=== PATIENT | female | born 1940 | race Two or more races ===

== ENCOUNTER 2016-10-15 10:32 | Emergency (ER) | payer OTHER ==
--- NOTE | 2016-10-15 10:42 | EDPHY ---
H & P Time Seen by Provider: 10/15/16 10:34 HPI/ROS: CHIEF COMPLAINT: Hypoxia HISTORY OF PRESENT ILLNESS: Patient is a 76-year-old Somali-speaking female who comes from her doctor's office. She presented there complaining of shortness of breath and a fever at home. She was seen by Dr. Orourke and noted to have hypoxia in the mid 80s on room air. She has history of polycythemia vera only. She also noted a potassium 6.2 two weeks ago. She recently started a new medication Jakafi. The patient denies chest pain or abdominal symptoms. she does have a mild cough. REVIEW OF SYSTEMS: Constitutional: denies: chills, fever, recent illness, recent injury EENTM: denies: blurred vision, double vision, nose congestion Respiratory: See HPI Cardiac: denies: chest pain, irregular heart rate, lightheadedness, palpitations Gastrointestinal/Abdominal: denies: abdominal pain, diarrhea, nausea, vomiting, blood streaked stools Genitourinary: denies: dysuria, frequency, hematuria, pain Musculoskeletal: denies: joint pain, muscle pain Skin: denies: lesions, rash, jaundice, bruising Neurological: denies: headache, numbness, paresthesia, tingling, dizziness, weakness Hematologic/Lymphatic: denies: blood clots, easy bleeding, easy bruising Immunologic/allergic: denies: HIV/AIDS, transplant EXAM: GENERAL: Well-appearing, well-nourished and in no acute distress. HEAD: Atraumatic, normocephalic. EYES: Pupils equal round and reactive to light, extraocular movements intact, sclera anicteric, conjunctiva are normal. ENT: TMs normal, nares patent, oropharynx clear without exudates. Moist mucous membranes. NECK: Normal range of motion, supple without lymphadenopathy or JVD. LUNGS: Rhonchi right lower lobe, no wheezing HEART: Regular rate and rhythm without murmurs, rubs or gallops. ABDOMEN: Soft, nontender, normoactive bowel sounds. No guarding, no rebound. No masses appreciated. BACK: No CVA tenderness, no spinal tenderness, step-offs or deformities EXTREMITIES: Normal range of motion, no pitting or edema. No clubbing or cyanosis. NEUROLOGICAL: Cranial nerves II through XII grossly intact. Normal speech, normal gait. 5/5 strength, normal movement in all extremities, normal sensation PSYCH: Normal mood, normal affect. SKIN: Warm, dry, normal turgor, no visible rashes or lesions. Source: Patient Exam Limitations: No limitations - Personal History Tetanus Vaccine Date: unknown - Medical/Surgical History Hx Asthma: No Hx Chronic Respiratory Disease: No Hx Diabetes: No Hx Cardiac Disease: No Hx Renal Disease: No Hx Cirrhosis: No Hx Alcoholism: No Other PMH: polycythemia, TIA, DVT, - Family History Significant Family History: Hypertension - Social History Smoking Status: Never smoked Alcohol Use: Sober Drug Use: None Constitutional: Initial Vital Signs Temperature (C) 36.7 C 10/15/16 10:35 Heart Rate 84 10/15/16 10:35 Respiratory Rate 18 10/15/16 10:35 Blood Pressure 109/64 10/15/16 10:35 O2 Sat (%) 90 L 10/15/16 10:35 O2 Delivery Mode Room Air O2 (L/minute) 2 Allergies/Adverse Reactions: No Known Allergies Allergy (Verified 10/15/16 10:43) Home Medications: Medication Instructions Recorded AZITHROMYCIN [Z-PACK] 250 mg PO DAILY #4 tab 10/15/16 Pill For "Too Much Iron In Blood" 10/15/16 Medical Decision Making - Diagnostics EKG Interpretation: An EKG obtained and was read and documented in trace view. Please see trace view for full reading and report. Sinus rhythm, unchanged from previous Imaging: X-ray: [chest x-ray ] was obtained. I viewed the images myself on the PACS system. My interpretation of the images is: Bilateral scarring, bronchitis changes. The radiologist interpretation is bilateral scarring similar to previous , no infiltrates. ED Course/Re-evaluation: The patient is doing well. She is saturating 97% on 2 L. Her son is here interpreting. I will start her on azithromycin and will see if she desaturates off of oxygen. 1:00 p.m. the patient is motivated to go home. She looks comfortable. Her son is here. She does desaturate to 87% occasionally but then spontaneously increases to 93%. She denies discomfort or shortness of breath. I offered admission but she and her son decline. I will start her on antibiotics and have her follow up within 24 hours. Son states that he lives right next to her and can' t check on her frequently. They will return here for symptoms worsen. 1:10 p.m. while I was walking past the patient's oxygen saturation dropped down to 83% with a good waveform. It immediately brought back up to 89%. I recommended admission. Patient continues to decline admission. Her son suggest that we observe her for another hour or two and decided then. 2:30 p.m. the patient is saturating 92-95% on room air. She and her son are eager to go. They declined further workup or testing. Differential Diagnosis: Partial list of the Differential diagnosis considered include but were not limited to; bronchitis, pneumonia and although unlikely based on the history and physical exam, I also considered COPD, asthma, CHF, acute coronary disease. I discussed these differential diagnoses and the plan with the patient as well as the usual and expected course. The patient understands that the diagnosis is provisional and that in medicine we are not always correct and that further workup is often warranted. Usual and customary warnings were given. All of the patient's questions were answered. The patient was instructed to return to the emergency department should the symptoms at all worsen or return, otherwise to followup with the physician as we discussed. - Data Points Laboratory Results: Laboratory Results 10/15/16 10:35 10/15/16 10:35 10/15/16 10/15/16 10/15/16 12:45 11:00 10:52 WBC RBC Hgb Hct MCV MCH MCHC RDW Plt Count MPV Neut % (Auto) Lymph % (Auto) Maury % (Auto) Eos % (Auto) Baso % (Auto) Nucleat RBC Rel Count Absolute Neuts (auto) Absolute Lymphs (auto) Absolute Monos (auto) Absolute Eos (auto) Absolute Basos (auto) Absolute Nucleated RBC Immature Gran % Immature Gran # Platelet Estimate Large Platelets Giant Platelets Hypochromasia Microcytic Cells Tear Drop Cells Oval Macrocytes Elliptocytes Acanthocytes (Spur) Schistocytes Smear Review By PT INR APTT VBG Lactic Acid 1.3 mmol/L mmol/L (0.7-2.1) Sodium Potassium Chloride Carbon Dioxide Anion Gap BUN Creatinine Estimated GFR Glucose Calcium Total Bilirubin Urine Color YELLOW Urine Appearance HAZY Urine pH 5.0 (5.0-7.5) Ur Specific [place] 1.015 (1.002-1.030) Urine Protein 2+ H (NEGATIVE) Urine Ketones NEGATIVE (NEGATIVE) Urine Blood 1+ H (NEGATIVE) Urine Nitrate NEGATIVE (NEGATIVE) Urine Bilirubin NEGATIVE (NEGATIVE) Urine Urobilinogen NEGATIVE EU EU (0.2-1.0) Ur Leukocyte Esterase NEGATIVE (NEGATIVE) Urine RBC 3-5 /hpf H /hpf (0-3) Urine WBC 1-3 /hpf /hpf (0-3) Ur Epithelial Cells TRACE /lpf /lpf (NONE-1+) Urine Bacteria TRACE /hpf H /hpf (NONE SEEN) Granular Casts 5-15 /lpf /lpf (0-1) Urine Mucus TRACE /lpf /lpf (NONE-1+) Urine Glucose NEGATIVE (NEGATIVE) Influenza Typ A,B (DFA) NEGATIVE FOR FLU (NEGATIVE) 10/15/16 10/15/16 10/15/16 10:35 10:35 10:35 WBC 7.10 10^3/uL 10^3/uL (3.80-9.50) RBC 3.27 10^6/uL L 10^6/uL (4.18-5.33) Hgb 10.0 g/dL L g/dL (12.6-16.3) Hct 31.4 % L % (38.0-47.0) MCV 96.0 fL fL (81.5-99.8) MCH 30.6 pg pg (27.9-34.1) MCHC 31.8 g/dL L g/dL (32.4-36.7) RDW 25.3 % H % (11.5-15.2) Plt Count 798 10^3/uL H 10^3/uL (150-400) MPV 12.6 fL H fL (8.7-11.7) Neut % (Auto) 84.4 % H % (39.3-74.2) Lymph % (Auto) 8.6 % L % (15.0-45.0) Maury % (Auto) 4.4 % L % (4.5-13.0) Eos % (Auto) 0.3 % L % (0.6-7.6) Baso % (Auto) 0.3 % % (0.3-1.7) Nucleat RBC Rel Count 0.6 % H % (0.0-0.2) Absolute Neuts (auto) 6.00 10^3/uL 10^3/uL (1.70-6.50) Absolute Lymphs (auto) 0.61 10^3/uL L 10^3/uL (1.00-3.00) Absolute Monos (auto) 0.31 10^3/uL 10^3/uL (0.30-0.80) Absolute Eos (auto) 0.02 10^3/uL L 10^3/uL (0.03-0.40) Absolute Basos (auto) 0.02 10^3/uL 10^3/uL (0.02-0.10) Absolute Nucleated RBC 0.04 10^3/uL H 10^3/uL (0-0.01) Immature Gran % 2.0 % H % (0.0-1.1) Immature Gran # 0.14 10^3/uL H 10^3/uL (0.00-0.10) Platelet Estimate INCREASED H (ADEQ) Large Platelets PRESENT H Giant Platelets PRESENT H Hypochromasia 1+ H Microcytic Cells 3+ H Tear Drop Cells 2+ H Oval Macrocytes 3+ H Elliptocytes 2+ H Acanthocytes (Spur) 1+ H Schistocytes 3+ H Smear Review By Pending PT 15.4 SEC H SEC (12.0-15.0) INR 1.22 H (0.83-1.16) APTT 46.2 SEC H SEC (23.0-38.0) VBG Lactic Acid Sodium 132 mEq/L L mEq/L (134-144) Potassium 4.3 mEq/L mEq/L (3.5-5.2) Chloride 96 mEq/L L mEq/L (97-110) Carbon Dioxide 27 mEq/l mEq/l (22-31) Anion Gap 9 mEq/L mEq/L (8-16) BUN 13 mg/dL mg/dL (7-23) Creatinine 0.7 mg/dL mg/dL (0.6-1.0) Estimated GFR > 60 Glucose 119 mg/dL H mg/dL (70-100) Calcium 8.5 mg/dL mg/dL (8.5-10.4) Total Bilirubin 1.2 mg/dL mg/dL (0.1-1.4) Urine Color Urine Appearance Urine pH Ur Specific [place] Urine Protein Urine Ketones Urine Blood Urine Nitrate Urine Bilirubin Urine Urobilinogen Ur Leukocyte Esterase Urine RBC Urine WBC Ur Epithelial Cells Urine Bacteria Granular Casts Urine Mucus Urine Glucose Influenza Typ A,B (DFA) Medications Given: Discontinued Medications Albuterol Sulfate (Proventil Inh Prepack) 1 mdi TAKEHOME EDNOW ONE Stop: 10/15/16 13:05 Last Admin: 10/15/16 13:40 Dose: 1 mdi Albuterol/Ipratropium (Duoneb) 3 ml IH EDNOW ONE Stop: 10/15/16 12:11 Last Admin: 10/15/16 12:15 Dose: 3 ml Azithromycin (Zithromax) 500 mg PO EDNOW ONE PRN Reason: Protocol Stop: 10/15/16 12:06 Last Admin: 10/15/16 12:10 Dose: 500 mg Departure - Departure Disposition: Home, Routine, Self-Care Clinical Impression: Acute bronchitis Qualifiers: Bronchitis organism: unspecified organism Qualified Code(s): J20.9 - Acute bronchitis, unspecified Condition: Fair Instructions: Acute Bronchitis (ED) Additional Instructions: Use inhaler as instructed: 1-2 puffs every 4 hours as needed for shortness of breath or cough Referrals: Jeannie Orourke MD [Primary Care Provider] - 1 day without fail Prescriptions: AZITHROMYCIN [Z-PACK] 250 mg PO DAILY #4 tab Print Language: Somali
[2016-10-15 10:49] VITALS: RESP 18; TEMP 98.1
[2016-10-15 10:49] LABS: ABSOLUTE IMMATURE GRANULOCYTES 0.14 10^3/uL (0.00-0.10); ABSOLUTE NRBC COUNT 0.04 10^3/uL (0-0.01); ADD DIFF? NO; ADD MORPH? YES; ADD SCAN? NO; ATYPICAL LYMPHOCYTE FLAG 0 (0-99); FRAGMENT RBC FLAG 90 (0-99); HEMATOCRIT 31.4 % (38.0-47.0); LEFT SHIFT FLG 10 (0-99); LIPEMIA HEMOLYSIS FLAG 80 (0-99); MEAN CELL HEMOGLOBIN 30.6 pg (27.9-34.1); MEAN CELL HEMOGLOBIN CONCENTR. 31.8 g/dL (32.4-36.7); MEAN PLATELET VOLUME 12.6 fL (8.7-11.7); NRBC-AUTO% 0.6 % (0.0-0.2); PLATELET CLUMPS FLAG 0 (0-99); RED BLOOD CELL COUNT 3.27 10^6/uL (4.18-5.33)
[2016-10-15 10:51] LABS: PLATELET COUNT 798 10^3/uL (150-400); RED CELL DISTRIBUTION WIDTH 25.3 % (11.5-15.2)
[2016-10-15 10:53] LABS: INR 1.22 (0.83-1.16); PROTIME(PATIENT) 15.4 SEC (12.0-15.0)
[2016-10-15 10:54] LABS: APTT 46.2 SEC (23.0-38.0)
--- NOTE | 2016-10-15 11:00 | CPEKG ---
Heart Rate: 80 RR Interval: 750 P-R Interval: 144 QRSD Interval: 88 QT Interval: 376 QTC Interval: 434 P Wayne: -1 QRS Wayne: 40 T Wave Wayne: 15 EKG Severity - NORMAL ECG - EKG Impression: SINUS RHYTHM EKG Impression: unchanged from previous Electronically Signed By: Gibran Wells 15-Oct-2016 11:14:18
[2016-10-15 11:10] LABS: ANION GAP 9 mEq/L (8-16); BILIRUBIN,TOTAL 1.2 mg/dL (0.1-1.4); CALCIUM 8.5 mg/dL (8.5-10.4); CARBON DIOXIDE 27 mEq/l (22-31); CHLORIDE 96 mEq/L (97-110); CREATININE 0.7 mg/dL (0.6-1.0); GLOMERULAR FILTRATION RATE > 60; GLUCOSE 119 mg/dL (70-100); POTASSIUM 4.3 mEq/L (3.5-5.2); SODIUM 132 mEq/L (134-144)
[2016-10-15 11:28] LABS: HYPOCHROMIA 1+; MACROCYTES 3+; MICROCYTES 3+; PLATELET ESTIMATE INCREASED (ADEQ)
[2016-10-15 11:29] LABS: ACANTHOCYTES 1+; ELLIPTOCYTES 2+; GIANT PLATELETS PRESENT; LARGE PLATELETS PRESENT; SCHISTOCYTES 3+
[2016-10-15] MEDS ORDERED: AZITHROMYCIN 250 MG TAB PO ONE (12:05)
[2016-10-15] MEDS ORDERED: IPRATROPIUM/ALBUTEROL 3 ML DEYVIAL IH ONE (12:10)
[2016-10-15 13:02] LABS: COLOR YELLOW; LEUKOCYTE ESTERASE,URINE NEGATIVE (NEGATIVE); NITRITE,URINE NEGATIVE (NEGATIVE)
[2016-10-15] MEDS ORDERED: ALBUTEROL INH PREPACK MDI TAKEHOME ONE (13:04)
[2016-10-15 13:42] LABS: BACTERIA TRACE /hpf (NONE SEEN); MUCUS TRACE /lpf (NONE-1+)
[2016-10-15 14:30] VITALS: BP 109/56; PULSE 81; O2SAT 93
== END 2016-10-15 14:49 | disposition home or self-care (01) ==
LOC: EDBD → EDUNIT#
DX: J20.9 Acute bronchitis, unspecified (principal); Z86.73 Personal history of transient ischemic attack (TIA), and cerebral infarction without residual deficits

== ENCOUNTER 2016-10-15 18:45 | Inpatient (IN) | payer OTHER ==
[2016-10-15] MEDS ORDERED: NS 250 ML IV ONE (19:34)
--- NOTE | 2016-10-15 19:45 | EDPHY ---
H & P Time Seen by Provider: 10/15/16 19:14 HPI/ROS: HPI Low oxygen levels, lower abdominal pain, diarrhea. 76-year-old female by private vehicle with her daughter. The patient was seen in the Emergency Department earlier this morning having being sent here by her primary care physician Dr. Orourke. She saw her primary care physician Dr. Orourke initially this morning with complaint of fatigue, low oxygen levels, low- grade fever at home and lower abdominal pain. Her daughter also tells me that she was recently put on a new medication called Jakafchristine by her benzol operator Dr. Anderson. Her chest x-ray did not show anything acute. Her pulse oximetries were mostly in the mid low 90s on room air in the emergency department. She occasionally would drop down to 87%. However, there was no further indication to admit her to the hospital at that time and she was motivated to go home. She returns to the emergency department now complaining of worsening left lower quadrant abdominal pain, diarrheal stools which she states is mucousy in nature and low oxygen levels at home. Apparently her 2nd daughter is a chief nursing officer and has a pulse oximetry machine and she was 83% at home. She denies any bloody or melenic stool. She has not had any vomiting. She denies any cough. Daughter reports that she has felt warm at home. ROS: Constitutional: As above, no chills. No weakness. Eyes: No discharge. No changes in vision. ENT: No sore throat. No nasal congestion or rhinorrhea. Respiratory: As above. Cardiac: No chest pain, no palpitations. Gastrointestinal: As above. No vomiting. Genitourinary: No hematuria. No dysuria or increased frequency with urination. Musculoskeletal: No back pain. No neck pain. No myalgias or arthralgias. Skin: No rashes. Neurological: No headache. No focal weakness or altered sensation. Past medical history: Polycythemia, TIA, DVT. She is not on anticoagulation. Primary care physician is Dr. Orourke. Gold Assayer is Dr. Anderson. Social history: Lives with her . She ambulates without a cane or walker. Nonsmoker. No alcohol. Here with her daughter. Physical Exam: General Appearance: Alert, no distress. This patient is responding to questions appropriately and in full sentences. This patient appears well- hydrated and well-nourished. Eyes: Pupils equal and round no pallor or injection. No lid edema, erythema or injection. Respiratory: There are no retractions, lungs are clear to auscultation anteriorly with good air movement bilaterally. No tachypnea Cardiovascular: Regular rate and rhythm. No murmur. Gastrointestinal: Abdomen is soft left lower quadrant tenderness on palpation, no masses, bowel sounds normal. No focal tenderness at McBurney's point. No Goins sign. Neurological: Motor sensory function is grossly intact. Cranial nerves are normal. Gait is normal. Skin: Warm and dry, no rashes. Musculoskeletal: Neck is supple and nontender. Extremities are symmetrical. All joints range without pain or impingement. Psychiatric: No agitation. No depression. Database: EKG: Imaging: CT scan of abdomen and pelvis with IV contrast: Significant for a sigmoid diverticulitis. Significant inflammation but no abscess. No free air. Results were discussed with staff radiologist Dr. Khang Marie. Procedures: Emergency department course: EKG, blood work, urinalysis and chest x-ray reviewed from her visit earlier this morning. Vital signs reviewed. Afebrile. No tachycardia. No tachypnea. IV was placed. Pulse oximetry on 2 L by nasal cannula ranges from 89% to 94% . She will be given 250 cc of IV normal saline per hour for the next 2 hours. She will be sent for a contrast enhanced CT scan of the abdomen and pelvis to evaluate for probable diverticulitis. 9:55 p.m., patient re-evaluated. Comfortable at this time. Pain is well controlled. Results of CT scan and diagnosis discussed with patient and her daughter. Plan for admission and IV antibiotics discussed. I also discussed my concern about her worsening anemia. H&H is 8.2 and 25.6, from 10 and 31.4 respectively earlier today. Possible source is rectal bleeding from diverticulitis. Patient started on IV ciprofloxacin and Flagyl in the emergency department. Type and screen sent. 10:00 p.m., spoke with on-call hospitalist Dr. Tarsha Encarnacion. Case discussed in detail with her. She accepts the patient for admission. She will see the patient in the emergency department. Her remaining emergency department course under my care has been uneventful. She was admitted in stable condition. Differential Diagnosis: The differential diagnosis on this patient includes but is not limited to diverticulitis, colitis, bronchitis, reactive airway disease. Urinary tract infection, volvulus, bowel obstruction, gastrointestinal hemorrhage unlikely. This represents a partial list of diagnoses considered. These considerations are based on history, physical exam, past history, reassessment and diagnostic testing. Smoking Status: Never smoked Constitutional: Initial Vital Signs Temperature (C) 37.2 C 10/15/16 18:58 Heart Rate 82 10/15/16 18:58 Respiratory Rate 20 10/15/16 18:58 Blood Pressure 116/53 L 10/15/16 18:58 O2 Sat (%) 89 L 10/15/16 18:58 O2 Delivery Mode Nasal Cannula O2 (L/minute) 2 Allergies/Adverse Reactions: No Known Allergies Allergy (Verified 10/15/16 18:56) Home Medications: Medication Instructions Recorded AZITHROMYCIN [Z-PACK] 250 mg PO DAILY #4 tab 10/15/16 Aspirin [Aspirin 81mg (*)] 81 mg PO DAILY 10/15/16 Hydroxyurea [Hydrea 500 mg (*)] 500 mg PO BID 10/15/16 Jakafi 10/15/16 Medical Decision Making - Data Points Laboratory Results: Laboratory Results 10/15/16 19:50 10/15/16 19:50 10/15/16 19:50 Smear Review By Gianfranco GARDNER MD Medications Given: Discontinued Medications Sodium Chloride (Ns) 250 mls @ 0 mls/hr IV ONCE ONE PRN Reason: Wide Open Stop: 10/15/16 19:35 Last Admin: 10/15/16 19:51 Dose: 250 mls Ciprofloxacin/Dextrose (Cipro 400 Mg (Premix)) 200 mls @ 200 mls/hr IV EDNOW ONE PRN Reason: Protocol Stop: 10/15/16 22:52 Last Admin: 10/15/16 22:25 Dose: 200 mls Metronidazole/Sodium Chloride (Flagyl 500 Mg (Premix)) 100 mls @ 100 mls/hr IV EDNOW ONE PRN Reason: Protocol Stop: 10/15/16 22:53 Last Admin: 10/15/16 23:50 Dose: 100 mls Metronidazole/Sodium Chloride (Flagyl 500 Mg (Premix)) 100 mls @ 100 mls/hr IV Q8HRS DARON PRN Reason: Protocol Stop: 11/15/16 05:59 Last Admin: 10/16/16 05:26 Dose: 100 mls Potassium Chloride/Sodium Chloride (Ns W/ 20 Kcl/L) 1,000 mls @ 100 mls/hr IV CONT DARON Stop: 04/13/17 23:29 Last Admin: 10/15/16 23:51 Dose: 1,000 mls Vancomycin/Sodium Chloride (Vancomycin 1 Gm (Premix)) 250 mls @ 250 mls/hr IV ONCE ONE PRN Reason: Protocol Stop: 10/16/16 06:50 Last Admin: 10/16/16 06:17 Dose: Not Given Departure - Departure Disposition: [facility] Acute Clinical Impression: Hypoxia, Lower abdominal pain, Diverticulitis, Anemia
[2016-10-15 20:00] LABS: % IMMATURE GRANULYOCYTES 1.8 % (0.0-1.1); ABSOLUTE IMMATURE GRANULOCYTES 0.13 10^3/uL (0.00-0.10); ABSOLUTE NRBC COUNT 0.03 10^3/uL (0-0.01); ADD DIFF? NO; ADD MORPH? YES; ADD SCAN? NO; ATYPICAL LYMPHOCYTE FLAG 0 (0-99); FRAGMENT RBC FLAG 90 (0-99); HEMATOCRIT 25.6 % (38.0-47.0); HEMOGLOBIN 8.2 g/dL (12.6-16.3); LEFT SHIFT FLG 10 (0-99); LIPEMIA HEMOLYSIS FLAG 80 (0-99); MEAN CELL HEMOGLOBIN 29.8 pg (27.9-34.1); MEAN CELL VOLUME 93.1 fL (81.5-99.8); MEAN PLATELET VOLUME 12.6 fL (8.7-11.7); NRBC-AUTO% 0.4 % (0.0-0.2); PLATELET CLUMPS FLAG 0 (0-99); PLATELET COUNT 738 10^3/uL (150-400); RED BLOOD CELL COUNT 2.75 10^6/uL (4.18-5.33)
[2016-10-15 20:01] LABS: RED CELL DISTRIBUTION WIDTH 26.4 % (11.5-15.2)
[2016-10-15 20:25] LABS: LARGE PLATELETS PRESENT
[2016-10-15 20:27] LABS: GIANT PLATELETS PRESENT; PLATELET ESTIMATE INCREASED (ADEQ); POLYCHROMASIA 2+
[2016-10-15 20:28] LABS: HYPOCHROMIA 1+; STOMATOCYTES 1+
[2016-10-15 20:29] LABS: ELLIPTOCYTES 1+
[2016-10-15 20:30] LABS: SCHISTOCYTES 1+
[2016-10-15 20:31] LABS: MICROCYTES 1+
[2016-10-15 20:40] LABS: ANION GAP 6 mEq/L (8-16); CALCIUM 7.8 mg/dL (8.5-10.4); CARBON DIOXIDE 25 mEq/l (22-31); CHLORIDE 95 mEq/L (97-110); CREATININE 0.6 mg/dL (0.6-1.0); GLOMERULAR FILTRATION RATE > 60; GLUCOSE 109 mg/dL (70-100); POTASSIUM 3.8 mEq/L (3.5-5.2); SODIUM 126 mEq/L (134-144)
[2016-10-15] MEDS ORDERED: IOPAMIDOL (ISOVUE-300) 100 ML BTL IV ONE (20:51)
[2016-10-15] MEDS ORDERED: CIPROFLOXACIN 400 MG/DEXTROSE 200 ML IV ONE (21:53)
[2016-10-15] MEDS ORDERED: ONDANSETRON DISINTEGRATING 4 MG TAB PO PRN (23:21)
[2016-10-15] MEDS ORDERED: oxyCODONE IR 5 MG TAB PO PRN (23:21)
[2016-10-15] MEDS ORDERED: BENZONATATE 100 MG CAP PO PRN (23:21)
[2016-10-15] MEDS ORDERED: ACETAMINOPHEN 325 MG TAB PO PRN (23:21)
[2016-10-15] MEDS ORDERED: ONDANSETRON 4 MG/2 ML VIAL IVP PRN (23:21)
[2016-10-15] MEDS ORDERED: ALBUTEROL 3 ML DEYVIAL IH PRN (23:21)
[2016-10-15] MEDS ORDERED: NS W/ 20 KCl/L 1,000 ML IV SCH (23:30)
--- NOTE | 2016-10-15 23:30 | PDGENHP ---
History and Physical - Chief Complaint abdominal pain - History of Present Illness 76 yo female with h/o polycythemia vera and thrombocytosis presented to ED with abdominal pain and hypoxemia earlier today. She was ultimately discharged home , but returned this evening with worsening symptoms. She reports upper respiratory symptoms including cough and sore throat x1 week. She denies chest pain or SOB. Denies pleuritic symptoms. Low grade fevers are reported. She was worked up for hypoxemia in the ED earlier today due to her O2 sats at home being in the mid-80's. CXR revealed peribronchial thickening and she was diagnosed with bronchitis and discharged home. She returned this evening reporting LLQ abdominal pain. She has a h/o diverticulitis 5 years ago. She reports mucus stools today, but denies hematochezia or melanotic stools. No N/V. CT scan revealed sigmoid diverticulitis. She is admitted to the hospital for further management. History Information - Allergies/Home Medication List Allergies/Adverse Reactions: No Known Allergies Allergy (Verified 10/15/16 18:56) Home Medications: Hydroxyurea 10/15/16 [Last Taken Unknown] Jakafi 10/15/16 [Last Taken Unknown] Pill For "Too Much Iron In Blood" 10/15/16 [Last Taken Unknown] I have personally reviewed and updated: family history, medical history, social history, surgical history - Past Medical History Additional medical history: Polycythemia Vera with thrombocytosis. Followed by Dr. Anderson. She was recently started on Jakafi and was to reduce her dose, but is awaiting the lower dose via mail. She also takes Hydroxyurea. - Surgical History Reports: cholecystectomy - Family History Positive for: cancer Additional family history: unknown cancer in mom and sisters - Social History Smoking Status: Never smoked Alcohol Use: None Drug Use: None (Lives with her in [place]. Originally from [place], fris[place] speaking[place] Review of Systems ROS: 10pt was reviewed & negative except for what was stated in HPI & below Physical Exam Temp Pulse Resp BP Pulse Ox 37.2 C 70 18 143/79 H 94 10/15/16 22:30 10/15/16 22:30 10/15/16 22:30 10/15/16 22:30 10/15/16 22:30 Constitutional: no apparent distress Eyes: PERRL Ears, Nose, Mouth, Throat: moist mucous membranes Cardiovascular: regular rate and rhythym, no murmur, rub, or gallop Respiratory: no respiratory distress, clear to auscultation Gastrointestinal: normoactive bowel sounds, other (nondistended, +LLQ tenderness with voluntary guarding, no rigidity or peritoneal signs) Skin: warm Musculoskeletal: full muscle strength Neurologic: AAOx3 Psychiatric: interacting appropriately Lab Data & Imaging Review 10/15/16 19:50 10/15/16 19:50 WBC 7.30 10^3/uL (3.80-9.50) 10/15/16 19:50 RBC 2.75 10^6/uL (4.18-5.33) L 10/15/16 19:50 Hgb 8.2 g/dL (12.6-16.3) L 10/15/16 19:50 Hct 25.6 % (38.0-47.0) L 10/15/16 19:50 MCV 93.1 fL (81.5-99.8) 10/15/16 19:50 MCH 29.8 pg (27.9-34.1) 10/15/16 19:50 MCHC 32.0 g/dL (32.4-36.7) L 10/15/16 19:50 RDW 26.4 % (11.5-15.2) H 10/15/16 19:50 Plt Count 738 10^3/uL (150-400) H D 10/15/16 19:50 MPV 12.6 fL (8.7-11.7) H 10/15/16 19:50 Neut % (Auto) 72.6 % (39.3-74.2) 10/15/16 19:50 Lymph % (Auto) 19.0 % (15.0-45.0) 10/15/16 19:50 [place] % (Auto) 6.2 % (4.5-13.0) 10/15/16 19:50 Eos % (Auto) 0.1 % (0.6-7.6) L 10/15/16 19:50 Baso % (Auto) 0.3 % (0.3-1.7) 10/15/16 19:50 Nucleat RBC Rel Count 0.4 % (0.0-0.2) H 10/15/16 19:50 Absolute Neuts (auto) 5.30 10^3/uL (1.70-6.50) 10/15/16 19:50 Absolute Lymphs (auto) 1.39 10^3/uL (1.00-3.00) 10/15/16 19:50 Absolute Monos (auto) 0.45 10^3/uL (0.30-0.80) 10/15/16 19:50 Absolute Eos (auto) 0.01 10^3/uL (0.03-0.40) L 10/15/16 19:50 Absolute Basos (auto) 0.02 10^3/uL (0.02-0.10) 10/15/16 19:50 Absolute Nucleated RBC 0.03 10^3/uL (0-0.01) H 10/15/16 19:50 Immature Gran % 1.8 % (0.0-1.1) H 10/15/16 19:50 Immature Gran # 0.13 10^3/uL (0.00-0.10) H 10/15/16 19:50 Platelet Estimate INCREASED (ADEQ) H 10/15/16 19:50 Large Platelets PRESENT H 10/15/16 19:50 Giant Platelets PRESENT H 10/15/16 19:50 Polychromasia 2+ H 10/15/16 19:50 Hypochromasia 1+ H 10/15/16 19:50 Microcytic Cells 1+ H 10/15/16 19:50 Stomatocytes 1+ H 10/15/16 19:50 Elliptocytes 1+ H 10/15/16 19:50 Schistocytes 1+ H 10/15/16 19:50 Sodium 126 mEq/L (134-144) L 10/15/16 19:50 Potassium 3.8 mEq/L (3.5-5.2) 10/15/16 19:50 Chloride 95 mEq/L (97-110) L 10/15/16 19:50 Carbon Dioxide 25 mEq/l (22-31) 10/15/16 19:50 Anion Gap 6 mEq/L (8-16) L 10/15/16 19:50 BUN 13 mg/dL (7-23) 10/15/16 19:50 Creatinine 0.6 mg/dL (0.6-1.0) 10/15/16 19:50 Estimated GFR > 60 10/15/16 19:50 Glucose 109 mg/dL (70-100) H 10/15/16 19:50 Calcium 7.8 mg/dL (8.5-10.4) L 10/15/16 19:50 Assessment & Plan Assessment: Sigmoid diverticulitis - Last episode [address], no abscess on CT , but extensive mesenteric fat inflammation. Will treat with IV Cipro, Flagyl. Clear liquids for now. Consider surgical consultation if not improving. Acute hypoxemic respiratory failure in setting of URI symptoms. CXR reviewed, no PNA. Pt has cough c/w viral URI. Flu negative. Considered PE in setting of thrombocytosis / PV. Wells criteria is 2.5 based on malignancy (PV) and decreased mobility with recent illness, overall low probability. Will check a d dimer and if positive, pursue imaging. Otherwise, will give nebs, O2, tessalon, supportive care. Update: pt's family declined d dimer tonight as pt finally getting some rest, will obtain in am. Polycythemia Vera with thrombocytosis - plts down to 700K from >1 million 2 weeks ago. Continue Hydroxyurea and Jakafi tomorrow when med rec completed. Anemia - chronic, baseline hgb around 10, dropped to 8 today. No obvious GI bleeding. Will hemoccult stool, follow h&h. Hyponatremia - acute. Suspect volume depletion as pt reports poor oral intake. Will give NS hydration overnight, check urine studies, follow. DVT PPLX - Lovenox Code status - DNR Dispo - Inpt status, will likely require >48 hrs hospitalization for management of diverticulitis and acute hypoxemic respiratory failure.
[2016-10-16] MEDS: IPRATROPIUM/ALBUTEROL 3 ML DEYVIAL IH SCH ×4 (05:05→21:30)
[2016-10-16 05:47] LABS: % IMMATURE GRANULYOCYTES 0.9 % (0.0-1.1); ABSOLUTE IMMATURE GRANULOCYTES 0.05 10^3/uL (0.00-0.10); ABSOLUTE NRBC COUNT 0.03 10^3/uL (0-0.01); ADD DIFF? NO; ADD MORPH? YES; ADD SCAN? NO; ATYPICAL LYMPHOCYTE FLAG 0 (0-99); FRAGMENT RBC FLAG 90 (0-99); HEMATOCRIT 25.7 % (38.0-47.0); HEMOGLOBIN 8.2 g/dL (12.6-16.3); LEFT SHIFT FLG 10 (0-99); LIPEMIA HEMOLYSIS FLAG 80 (0-99); MEAN CELL HEMOGLOBIN 30.8 pg (27.9-34.1); MEAN CELL HEMOGLOBIN CONCENTR. 31.9 g/dL (32.4-36.7); MEAN CELL VOLUME 96.6 fL (81.5-99.8); MEAN PLATELET VOLUME 12.6 fL (8.7-11.7); NRBC-AUTO% 0.5 % (0.0-0.2); PLATELET CLUMPS FLAG 10 (0-99); PLATELET COUNT 681 10^3/uL (150-400); RED BLOOD CELL COUNT 2.66 10^6/uL (4.18-5.33)
[2016-10-16] MEDS ORDERED: VANCOMYCIN HCL/NORMAL SALINE 250 ML IV ONE (05:51)
[2016-10-16 05:55] LABS: RED CELL DISTRIBUTION WIDTH 25.9 % (11.5-15.2)
[2016-10-16 06:10] LABS: ALANINE AMINOTRANSFERASE 27 IU/L (9-52); ALKALINE PHOSPHATASE 71 IU/L (38-126); ANION GAP 8 mEq/L (8-16); ASPARTATE AMINOTRANSFERASE 18 IU/L (14-46); BILIRUBIN,TOTAL 0.7 mg/dL (0.1-1.4); CARBON DIOXIDE 26 mEq/l (22-31); CHLORIDE 103 mEq/L (97-110); CREATININE 0.6 mg/dL (0.6-1.0); GLOMERULAR FILTRATION RATE > 60; GLUCOSE 97 mg/dL (70-100); MAGNESIUM 2.1 mg/dL (1.6-2.3); POTASSIUM 4.4 mEq/L (3.5-5.2); SODIUM 137 mEq/L (134-144); TOTAL PROTEIN 5.8 g/dL (6.3-8.2)
[2016-10-16] MEDS: ERTAPENEM 1 GM in NS 100 ML IV SCH (06:35)
[2016-10-16] MEDS ORDERED: D5W 1,000 ML IV SCH (07:00)
[2016-10-16 07:18] LABS: MACROCYTES 2+; MICROCYTES 1+
[2016-10-16 07:19] LABS: ELLIPTOCYTES 1+; HYPOCHROMIA 2+; POLYCHROMASIA 1+; SCHISTOCYTES 2+
[2016-10-16 07:20] LABS: PLATELET ESTIMATE INCREASED (ADEQ)
[2016-10-16] MEDS ORDERED: IOPAMIDOL (ISOVUE 370) 100 ML BTL IV ONE (07:27)
[2016-10-16] MEDS: ENOXAPARIN 40 MG/0.4 ML SYR SC SCH (08:42)
[2016-10-16] MEDS ORDERED: CIPROFLOXACIN 400 MG/DEXTROSE 200 ML IV SCH (09:00)
--- NOTE | 2016-10-16 09:52 | HOSPPROG ---
Hospitalist Progress Note Assessment/Plan: #Sigmoid diverticulitis: cont IV Ertapenem (prelim anaerobic culture grew gram + cocci) #Acute hypoxemic resp failure: CTA negative for PE. Suspect viral etiology. Flu negative 10/15. Will not treat with abx. Cont Duonebs, cough suppressants #Polycythema vera/thrombocytosis: hydroxyurea, Jakafi (onc to help determine dosing since anemic) #Normocytic anemia: H/H dropped a bit overnight. May be from IVFs. FOBT pending #Hypovolemic hyponatremia: Na corrected quickly overnight. Getting D5W, BMP down to 132. Will stop D5 and monitor since taking in PO now #Acute abdominal pain: due to diverticulitis. Improved. Cont PRN oxycodone #Diet: ADAT #DVT ppx: Lovenox #Disp: patient warrants admission given diverticulitis requiring IV abx and pain control Subjective: less abd pain today Objective: Vital Signs Temp Pulse Resp BP Pulse Ox 37.9 C 79 18 118/44 L 94 10/16/16 08:26 10/16/16 08:26 10/16/16 08:26 10/16/16 08:26 10/16/16 08:26 Laboratory Results 10/16/16 04:57 10/16/16 04:57 10/15/16 10/16/16 10/17/16 05:59 05:59 05:59 Intake Total 990 Output Total 700 Balance 290 - Physical Exam Constitutional: no apparent distress Eyes: PERRL Ears, Nose, Mouth, Throat: moist mucous membranes Cardiovascular: regular rate and rhythym, no murmur, rub, or gallop Respiratory: no respiratory distress, rhonchi (few rhonchi) Gastrointestinal: normoactive bowel sounds, tenderness (LLQ with deep palpation. No rebound or guarding) Genitourinary: no bladder fullness Skin: warm Neurologic: AAOx3 Psychiatric: interacting appropriately ICD10 Worksheet Patient Problems: Problems Problem Status Onset Anemia Acute Diverticulitis Acute Hypoxia Acute Lower abdominal pain Acute Polycythemia vera Active
[2016-10-16] MEDS ORDERED: JAKAFI 15 MG PO SCH (10:30)
[2016-10-16] MEDS: HYDROXYUREA 500 MG CAP PO SCH ×2 (11:07→21:05)
[2016-10-16 13:18] LABS: LARGE PLATELETS PRESENT
--- NOTE | 2016-10-16 17:38 | GHP ---
[f rep st] HISTORY AND PHYSICAL DATE OF ADMISSION: 10/15/2016 HISTORY OF PRESENT ILLNESS: The patient is a 76-year-old female, who has been followed by Dr. Michael Anderson for a history of polycythemia vera. I believe this was diagnosed approximately 10 years ago . Most recently, she has been on Jakafi 20 mg daily, but she has had increasing thrombocytosis with this and Dr. Anderson is planning on putting her on Jakafi at 15 mg b.i.d. [facility] complaining of abdominal pain and some hypoxemia. An earlier chest x-r ay revealed peribronchial thickening and possible bronchitis, but then she developed left lower quad rant pain. A CT scan of the abdomen showed evidence of recurrent sigmoid diverticulitis. She has h ad a previous episode in 2011 with no evidence of abscess. There was rather extensive pericolonic m esenteric fat inflammation. CT angiogram showed a possible bronchitis, but no clot. She was hospit alized, placed ertapenem with blood cultures growing out gram-positive cocci. Testing for flu was n egative. She says she currently is feeling better, and her abdominal pain is improving. PAST MEDICAL HISTORY: Significant for P vera with thrombocytosis. She is also, in addition to Christopher lawrence, on Hydrea. SOCIAL HISTORY: She lives with her . She speaks some Frisian. REVIEW OF SYSTEMS: Negative except for the HPI. PHYSICAL EXAMINATION: GENERAL: She is alert and oriented. VITAL SIGNS: Blood pressure 126/43, te mp 100.4. 2 L saturation is 96%. HEENT: She is not icteric. LYMPH: I detect no adenopathy. LUNG S: Clear. CARDIAC EXAM: Unremarkable. ABDOMEN: She has a bit of tenderness in her left lower qu adrant. LABORATORY DATA: Admission white count 7.3, it is currently 5.75, hemoglobin 8.2, hematocrit 25.7, platelets 681,000. Chemistry panel shows an albumin of 3. IMPRESSION: Patient with long-standing polycythemia vera. She is now anemic, but has had issues wi th significant thrombocytosis in the past. She has been on Jakafi. Dr. Anderson wants to transition her to 15 mg b.i.d. dose, but she has not yet received a prescription. She is being treated for di verticulitis and seems to be responding. We could probably restart her Jakafi at 20 mg a day while we were waiting the other prescription. I will discuss with the hospitalist's service. She does [place] ve gram-positives in an anaerobic culture and will need to further evaluate that. /[id number]/MODL
[2016-10-16] MEDS ORDERED: IPRATROPIUM/ALBUTEROL 3 ML DEYVIAL IH PRN (21:50)
[2016-10-17 05:46] LABS: HEMATOCRIT 25.3 % (38.0-47.0); LIPEMIA HEMOLYSIS FLAG 80 (0-99); MEAN CELL HEMOGLOBIN 30.5 pg (27.9-34.1); MEAN CELL HEMOGLOBIN CONCENTR. 31.6 g/dL (32.4-36.7); MEAN CELL VOLUME 96.6 fL (81.5-99.8); PLATELET COUNT 649 10^3/uL (150-400); RED BLOOD CELL COUNT 2.62 10^6/uL (4.18-5.33)
[2016-10-17 05:58] LABS: RED CELL DISTRIBUTION WIDTH 25.8 % (11.5-15.2)
[2016-10-17 06:57] LABS: ANION GAP 6 mEq/L (8-16); CALCIUM 7.7 mg/dL (8.5-10.4); CARBON DIOXIDE 28 mEq/l (22-31); CHLORIDE 100 mEq/L (97-110); CREATININE 0.5 mg/dL (0.6-1.0); GLOMERULAR FILTRATION RATE > 60; GLUCOSE 99 mg/dL (70-100); POTASSIUM 3.8 mEq/L (3.5-5.2); SODIUM 134 mEq/L (134-144)
[2016-10-17] MEDS: HYDROXYUREA 500 MG CAP PO SCH (08:01)
[2016-10-17] MEDS: ENOXAPARIN 40 MG/0.4 ML SYR SC SCH (08:01)
[2016-10-17] MEDS ORDERED: ASPIRIN 81 MG CHEWABLE TAB PO SCH (09:00)
[2016-10-17] MEDS: ERTAPENEM 1 GM in NS 100 ML IV SCH (09:05)
[2016-10-17 12:07] VITALS: RESP 18
[2016-10-17 12:14] VITALS: BP 108/46; PULSE 81; TEMP 98.3; O2SAT 96
--- NOTE | 2016-10-17 14:17 | SOAPPROG ---
SOAP Progress Note Assessment/Plan: Assessment: 1. P vera 2.Diverticulitis Plan:Home today on po antibiotics, continue hydrea at current dose, start Jakafi at 15 mg bid, follow up Dr Anderson next week 10/17/16 14:15 Subjective: Feels ok Objective: Vital Signs Temp Pulse Resp BP Pulse Ox 98.3 F 81 18 108/46 L 96 10/17/16 12:00 10/17/16 12:00 10/17/16 12:00 10/17/16 12:00 10/17/16 12:00 Laboratory Results 10/17/16 05:00 10/17/16 05:00 10/16/16 10/17/16 10/18/16 05:59 05:59 05:59 Intake Total 990 670 Output Total 700 1300 Balance 290 -630 Physical Exam - Physical Exam General Appearance: no apparent distress Respiratory: normal breath sounds Cardiac/Chest: regular rate, rhythm Abdomen: normal bowel sounds, non-tender ICD10 Worksheet Patient Problems: Problems Problem Status Onset Anemia Acute Diverticulitis Acute Hypoxia Acute Lower abdominal pain Acute Polycythemia vera Active
--- NOTE | 2016-10-17 19:22 | GDS ---
[f rep st] DISCHARGE SUMMARY DISCHARGE DIAGNOSES: 1. Diverticulitis. 2. Polycythemia vera. 3. Acute hypoxemic respiratory failure. 4. Normocytic anemia. 5. Hypovolemic hyponatremia. 6. Abdominal pain. CONSULTATIONS: Dr. Mullen of Hematology. STUDIES AND PROCEDURES DONE: 1. CT angio of the chest with no evidence of PE. 2. CT of the abdomen noting sigmoid colon diverticulitis. PHYSICAL EXAM: GENERAL: The patient is alert. VITAL SIGNS: Afebrile at 36.8, pulse is 81, respir atory rate is 18, blood pressure is 108/46. She is saturating 96% on 2 L, 84% on room air. I have seen and evaluated the patient on the day of discharge. HOSPITAL COURSE: The patient is a 76-year-old female who presented to the emergency room with compl aints of abdominal pain. She was evaluated and diagnosed with: 1. Sigmoid diverticulitis. During this hospitalization, she was treated with IV ertapenem. Her co ndition has significantly improved. She is tolerating a regular diet, and her abdominal pain has re solved. She will be transitioned to oral Levaquin and Flagyl for the time of disposition and will c ontinue these in the outpatient setting. 2. Prior colonic mesenteric fat inflammation. This was noted on the patient's CT scan. It is adriana mmended that she follow up in the outpatient setting with a repeat CT scan of the pelvis and abdomen in the next 4-6 weeks to assure resolution and coinciding with her diverticulitis. The patient and the daughter have been educated with regard to this. 3. Acute hypoxemic respiratory failure. This is likely secondary to the patient's polycythemia renetta a as well as atelectasis. She has been prescribed home oxygen at the time of disposition and will c ontinue the supplemental oxygen in the outpatient setting. 4. Polycythemia vera with thrombocytosis. The patient's medications have been adjusted. She did r eceive a consultation from Dr. Mullen of Hematology during this hospitalization and will continue her outpatient medication regimen with followup with Hematology outside the hospital. 5. Normocytic anemia. Again, she will follow with Hematology. 6. Hypovolemic hyponatremia. The patient responded well to fluid hydration. Her hyponatremia has resolved. 7. Acute abdominal pain. This is in the setting of diverticulitis and has resolved. 8. Disposition. The patient will be discharged home with her daughter on supplemental home oxygen. There are no pending studies. Followup will be with her primary care physician, maverick Rush s well as Hematology. It was also recommended that she have a followup CAT scan of the abdomen and pelvis in 4-6 weeks for further diagnostics and follow up resolution of her diverticulitis. I spent greater than 35 minutes in the care, coordination, and management of this patient's disposit ion. DISCHARGE MEDICATIONS: Please refer to EMR form. I have provided the patient a prescription for Fl agyl as well as Levaquin. /[id number]/MODL
== END 2016-10-17 15:17 | disposition home or self-care (01) | DRG 391 ==
LOC: F1N 23:15 → F3E 10-16 14:34
PROVIDERS: ADMIT Hospitalist; ATTEND Internal Medicine
DX: K57.32 Diverticulitis of large intestine without perforation or abscess without bleeding (principal); J96.01 Acute respiratory failure with hypoxia; E87.1 Hypo-osmolality and hyponatremia; D45 Polycythemia vera; D64.9 Anemia, unspecified; Z86.718 Personal history of other venous thrombosis and embolism
CPT/HCPCS: 96365; 97116-GP; 97161-GP; 97165-GO; 97535-GO; G8978-GP-CI; G8979-GP-CI; G8980-GP-CI; G8987-GO-CJ; G8988-GO-CI; J0744; J1335; J1650; J3370; Q9967